=== PATIENT | male | born 1975 | race Caucasian/White ===

== ENCOUNTER 2017-02-14 15:42 | Outpatient (CLI) | payer BC ==
[~2017-02-14 15:42] MED LIST: CARISOPRODOL350 MG PO; CEFALEXIN PO; HYDROCHLOROTHIA25 MG PO; HYDROXYZINE HCL25 MG PO; LISINOPRIL10 MG PO; NAPROSYN250 MG PO; ULTRAM ER200 MG PO
--- NOTE | 2017-02-14 16:28 | DIAGNOSTIC IMAGING REPORT ---
PROCEDURE: US SCROTUM/TESTICLE INDICATION: KNOT BETWEEN TESTICULES;PAIN TECHNIQUE: Spencer scale and color Doppler sonographic images through the scrotum were obtained. COMPARISON: None. FINDINGS: RIGHT TESTICLE: Measures 5.4 x 3.3 x 2.9 cm with normal echo structure and vascularity. Normal epididymis. LEFT TESTICLE: Measures 5.2 x 3.6 x 2.9 cm with normal echo structure and vascularity. Normal epididymis. IMPRESSION: 1. Normal testicular ultrasound.
== END 2017-02-14 23:00 ==
LOC: US SRH 15:42
DX: N50.819 Testicular pain, unspecified (principal)